=== PATIENT | male | born 1980 | race American Indian/Alaskan Native ===

== ENCOUNTER 2017-03-15 20:32 | Emergency (ER) | payer BC ==
[2017-03-15 21:40] VITALS: TEMP 98.4
[2017-03-15 21:41] VITALS: BMI 35.5
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
[2017-03-15] MEDS ORDERED: TDAP Vaccine 0.5 mL Syr IM ONE (21:51)
[2017-03-15 23:41] VITALS: BP 138/76; PULSE 92; RESP 16; O2SAT 99
--- NOTE | 2017-03-16 07:50 | RAD ---
PROCEDURE: Right Hip Radiographs. HISTORY: trauma COMPARISON: None. FINDINGS: BONES: There is a comminuted fracture of the and neck and head of the 2nd metacarpal. The fracture extends to the articular surface JOINTS: Normal. SOFT TISSUES: Normal. OTHER FINDINGS: None. IMPRESSION: There is a comminuted fracture of the and neck and head of the 2nd metacarpal. The fracture extends to the articular surface
== END 2017-03-15 23:42 | disposition home or self-care (01) ==
LOC: ED 20:32
DX: S62.390A Other fracture of second metacarpal bone, right hand, initial encounter for closed fracture (principal); W22.01XA Walked into wall, initial encounter; Y93.89 Activity, other specified; Y92.89 Other specified places as the place of occurrence of the external cause; Z23 Encounter for immunization
CPT/HCPCS: 73130; 90471; 90715; 96372; 99284; J1885